=== PATIENT | male | born 1980 | race Caucasian/White ===

== ENCOUNTER 2018-07-22 19:34 | Emergency (ER) | payer BC ==
[~2018-07-22] VITALS: Ht 162.6 cm; Wt 84.9 kg
[2018-07-22 19:53] VITALS: BP 115/70
--- NOTE | 2018-07-22 19:56 | NUR ---
TO BED # 08 AMBULATORY
--- NOTE | 2018-07-22 20:25 | NUR ---
ASSUMED CARE OF PT AT THIS TIME. C/O RIGHT WRIST PAIN/SWELLING S/P MECHANICAL FALL X 8 HOURS AGO. AAOX4 WITH EVEN AND STEADY GAIT; PATIENT STATES PAIN OF 10/10; VSS; PATIENT POSITIONED FOR COMFORT; HOB ELEVATED; BEDRAILS UP X2; BED DOWN. ER MD MADE AWARE OF PT STATUS. WILL CONTINUE TO MONITOR.
[2018-07-22] MEDS ORDERED: KETOROLAC 30 MG/ML VIAL IM ONE (20:55)
[2018-07-22 21:15] VITALS: BP 115/70
--- NOTE | 2018-07-22 21:15 | NUR ---
Patient discharged with v/s stable. Written and verbal after care instructions given and explained. Patient alert, oriented and verbalized understanding of instructions. Ambulatory with steady gait. All questions addressed prior to discharge. ID band removed. Patient advised to follow up with PMD. Rx of MOTRIN AND NORCO given. Patient educated on indication of medication including possible reaction and side effects. Opportunity to ask questions provided and answered.
== END 2018-07-22 21:15 | disposition home or self-care (01) ==
LOC: MED 19:34
DX: S52.571A Other intraarticular fracture of lower end of right radius, initial encounter for closed fracture (principal); S52.614A Nondisplaced fracture of right ulna styloid process, initial encounter for closed fracture; R20.2 Paresthesia of skin; W18.39XA Other fall on same level, initial encounter; Y93.89 Activity, other specified; Y92.89 Other specified places as the place of occurrence of the external cause; Y99.8 Other external cause status
CPT/HCPCS: 29125; 73110; 96372; 99283; J1885